=== PATIENT | male | born 1995 | race Caucasian/White ===

== ENCOUNTER 2017-05-09 18:58 | Emergency (ER) | payer BC ==
[2017-05-09] MEDS ORDERED: Sodium Chloride 0.9% 1,000 ML PRIMARY IV ONE ×2 (19:00→19:19)
[2017-05-09] MEDS ORDERED: DIPH,PERTUSS,TET(ADACEL) VAC/PF 0.5 ML (Tdap) IM ONE (19:19)
[2017-05-09] MEDS ORDERED: NORMAL SALINE 10 ML SYRINGE FLUSH IVP PRN (19:19)
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
[2017-05-09 19:37] LABS: BASOPHILS # (AUTO) 0.07 10*3/UL; BASOPHILS % (AUTO) 0.3 % (0-1); EOSINOPHILS # (AUTO) 0.17 10*3/UL; EOSINOPHILS % (AUTO) 0.8 % (0-8); HEMATOCRIT 43.5 % (42.0-52.0); HEMOGLOBIN 15.4 g/dL (14.0-18.0); LYMPHOCYTES # (AUTO) 3.05 10*3/uL; MEAN CORPUSCULAR HEMOGLOBIN 29.4 PG (27-31); MEAN CORPUSCULAR HGB CONC 35.4 g/dL (33-37); MEAN PLATELET VOLUME 11.6 FL (7.4-12.2); MONOCYTES # (AUTO) 1.38 10*3/UL (0.3-0.8); MONOCYTES % (AUTO) 6.9 % (5-15); NEUTROPHILS # (AUTO) 15.28 10*3/UL; NEUTROPHILS % (AUTO) 76.2 % (50-80); RED BLOOD COUNT 5.24 10^6/uL (4.70-6.10)
[2017-05-09 19:39] LABS: PLATELET MORPHOLOGY COMMENT NORMAL MORPHOLOGY (NORM); RBC MORPHOLOGY COMMENT NORMAL MORPHOLOGY (NORM); WBC MORPHOLOGY COMMENT NORMAL MORPHOLOGY (NORM)
[2017-05-09 19:41] LABS: VENOUS PH 7.32 (7.32-7.42)
[2017-05-09 19:48] LABS: BLOOD UREA NITROGEN 17 mg/dL (7-22); CALCIUM 8.9 mg/dL (8.7-10.7); EST GLOMERULAR FILTRATION > 60 (>60 ml/min/1.73m(2))
[2017-05-09] MEDS ORDERED: Lidocaine Inj 1% 20 ML ONE ×2 (20:36→21:11)
[2017-05-09] MEDS ORDERED: MIDAZOLAM 5 MG/1 ML ONE (20:36)
[2017-05-09] MEDS ORDERED: MORPHINE SULFATE 4 MG/1 ML ONE ×2 (20:37→21:02)
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
[2017-05-09 22:32] LABS: BILIRUBIN,URINE NEGATIVE (NEG); CLARITY,URINE CLEAR (CLEAR); COLOR,URINE YELLOW; GLUCOSE, URINE (UA) NEGATIVE (NEG); NITRATE,URINE NEGATIVE (NEG); OCCULT BLOOD,URINE NEGATIVE (NEG); PH,URINE 6.5 (5.0-8.5); PROTEIN,URINE NEGATIVE (NEG); URINE SAMPLE TYPE CLEAN CATCH URINE
[2017-05-09 22:41] LABS: OPIATE SCREEN,URINE POSITIVE (NEG); URINE SAMPLE TYPE CLEAN CATCH URINE
[2017-05-09 22:42] LABS: AMPHETAMINE SCREEN NEGATIVE (NEG); CANNABINOID SCREEN,URINE NEGATIVE (NEG); COCAINE SCREEN NEGATIVE (NEG); METHADONE URINE SCREEN NEGATIVE (NEG); METHAMPHETAMINES SCREEN,URINE NEGATIVE (NEG)
[2017-05-10] MEDS ORDERED: MORPHINE SULFATE 4 MG/1 ML IVP ONE (04:23)
[2017-05-10] MEDS ORDERED: PROPOFOL 10 MG/1 ML (200 MG/20 ML) VIAL IV ONE (04:23)
[2017-05-10] MEDS ORDERED: MIDAZOLAM 5 MG/1 ML IVP ONE (04:23)
[2017-05-10 05:32] VITALS: RESP 28; TEMP 97.9
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
--- NOTE | 2017-05-11 10:25 | DI ---
XR HAND MIN 3VW,05/09/2017 10:01 PM: Clinical History: Left wrist pain. Previous Exam: Findings: 3 views of the left hand are obtained, and demonstrate a small, minimally displaced fracture of the h amate bone. Surrounding soft tissues are unremarkable. Impression: Slightly displaced fracture of the hamate.
--- NOTE | 2017-05-11 10:51 | DI ---
XR CXR 1VW,05/09/2017 10:00 PM: Clinical History: Status post placement of chest tube. Previous Exam: May 09, 2017 Findings: A single frontal radiograph of the chest is obtained, and demonstrates a chest tube within the left h emithorax. The left-sided rib fractures are not well seen. There is diffuse opacification of the left lung. Overlying EKG leads are seen. There is still a very small left apical pneumothorax. There is also a right apical pneumothorax. Impression: New left chest wall with reexpansion of the left lung and only a small residual left apical pneumotho rax.
== END 2017-05-09 22:30 | disposition short-term general hospital (02) ==
LOC: ER 18:58
DX: J93.83 Other pneumothorax (principal); S27.321A Contusion of lung, unilateral, initial encounter; S42.255A Nondisplaced fracture of greater tuberosity of left humerus, initial encounter for closed fracture; S22.42XA Multiple fractures of ribs, left side, initial encounter for closed fracture; S01.01XA Laceration without foreign body of scalp, initial encounter; S51.812A Laceration without foreign body of left forearm, initial encounter; S40.022A Contusion of left upper arm, initial encounter; S40.212A Abrasion of left shoulder, initial encounter; S20.312A Abrasion of left front wall of thorax, initial encounter; M25.512 Pain in left shoulder; M79.602 Pain in left arm; R06.02 Shortness of breath; V48.5XXA Car driver injured in noncollision transport accident in traffic accident, initial encounter; Y92.411 Interstate highway as the place of occurrence of the external cause
CPT/HCPCS: 12002 ×2; 32551 ×2; 36415 ×2; 70450; 71010; 71020; 71260; 72125; 73030; 73060; 73070; 73090; 73130; 74177; 80053; 80305; 80320; 81003; 82150; 82803; 83605; 83690; 85025; 85610; 90471; 93005; 93010; 99285 ×2; J2704; J2001; J2250; J2270; J7030